=== PATIENT | male | born 1975 | race Caucasian/White ===

== ENCOUNTER 2025-06-22 07:58 | Emergency (ER) | payer OTHER, SELFPAY ==
--- OUTSIDE RECORDS SUMMARY | 2025-06-22 08:00 | XMS_ITS | Clinical Summary ---
Author Organization [facility] Address [address] [place] [id number] Care Team Providers Care Therapeutic Dietitian Name Role Phone Pcp, No Primary Care Provider Unavailabl e Allergies No known active allergies Medications sertraline (ZOLOFT) 25 mg tabletIndicatio ns:Chronic insomnia Take 1(25mg) pill orally in the evening. If, after 2 weeks no benefit may increase to 2 pills (50mg) 60 Tablet 1 09/20/2021 Active sertraline (ZOLOFT) 100 mg tabletIndicatio ns:Chronic insomnia Take 1 Tablet (100 mg) by mouth once daily. 30 Tablet 3 10/21/2021 Active Active Problems No known active problems Immunizations Immunization Administration Dates Next Due Tdap 09/30/2020 Family History Medical History Relation Name Comments Cancer Brother Cancer Father Skin Cancer Maternal Grandfather Relation Name Status Comments Brother Father Maternal Grandfather Social History Tobacco Use Types Packs/Day Years Used Date Smoking Tobacco: Former Cigarettes 0.5 25 0 05/03/1996 - 05/03/2021 Smokeless Tobacco: Current Chew Tobacco Cessation:Ready to Q uit: No; Counseling Given: Yes Alcohol Use Standard Drinks/Week Comments Yes 0 (1 standard drink = 0.6 oz pur e alcohol) 4-5 beers per day PHQ-2 Answer Date Recorded PHQ-2 TOTAL SCORE 0 04/30/2021 Social Connections Answer Date Recorded Frequency of Communication with Friends and Fami ly Not on file 11/21/2021 Financial Resource Strain Answer Date R ecorded Difficulty of Paying Living Expenses Not on file 11/21/2021 Difficulty of Paying Living Expenses Not on file 11/21/2021 Sex and Gender Information Value Date Recorded Sex Assigned at Not on file Legal Sex Male 5:47 AM [employer] Gender Identity Not on file Sexual Orientation Not on file 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 file Not on file Not on file Obstetrics History Last Filed Vital Signs Vital Sign Reading Time Taken Comments Blood Pressure 132/79 10/01/2021 9:27 AM [facility] Pulse 79 10/01/2021 9:27 AM [employer] Temperature 36.8 C (98.2 F) 04/30/2021 7:27 AM CDT Respiratory Rate 20 02/07/2012 9:05 AM CDT Oxygen Saturation 97% 10/01/2021 9:27 AM [employer] Inhaled Oxygen Concentration - - Weight 95.5 kg (210 lb 8 oz) 10/01/2021 9:27 AM [employer] Height 165.1 cm (5' 5) 06/02/2021 8:55 AM CDT Body Mass Index 35.03 06/02/2021 8:55 AM CDT Plan of Treatment Health Maintenance Due Date Last Done Comments HIV for age 15-65 1990 Hepatitis C screening for ag e 18-79 1993 Hepatitis B series for 19+ ( 1 of 3 - 19+ 3-dose series) 1994 Colonoscopy through age 75 2020 Depression screening for age 12+ 05/01/2022 05/01/2021, 04/30/2021, 05/21/2019 BMI (ht and wt on same day) for age 18+ 06/02/2022 06/02/2021, 04/30/2021, 05/21/2019, Additional history exists COVID-19 vaccine series (1 - 2023- season) 2024 Pneumococcal series for age 50+ (1 of 1 - PCV) 2025 Zoster (shingles) series for age 50+ (1 of 2) 2025 Influenza Vaccine (#1) 2025 Lipids for age 45-75 04/30/2026 04/30/2021 Tetanus booster 09/30/2030 09/30/2020 Procedures Procedure Name Priority Date/Time Associated Diagnosis Comments LIPID PANEL W REFLEX MEASURED LDL Routine 04/30/2021 8:30 AM CDT Chronic diarrhea from Last 3 Months or Most Recently Relevant to Health Maintenance Results * LIPID PANEL W REFLEX MEASURED LDL (04/30/2021 8:30 AM CDT) CHOLESTEROL,TOTAL 170 100 - 199 mg/dL 04/30/2021 4:49 PM CDT [facility] TRIGLYCERIDES 46 <150 mg/dL 04/30/2021 4:49 PM CDT [facility] HDL CHOLESTEROL 68 >40 mg/dL 4:49 PM CDT [facility] NON-HDL CHOLESTEROL 102 <145 mg/dl 04/30/2021 4:49 PM CDT [facility] CHOL/HDL RATIO 2.50 <4.50 04/30/2021 4:49 PM CDT [facility] LDL CHOLESTEROL 93 <=130 mg/dL 04/30/2021 4:49 PM CDT [facility] VLDL CHOLESTEROL 9 mg/dL 04/30/20 4:49 PM CDT [facility] PROVIDER ORDERED STATUS RANDOM 04/30/2021 4:49 PM CDT [facility] Blood BLOOD SPECIMEN / Unknown Venipuncture / Unknown 04/30/2021 8:30 AM CDT 04/30/2021 8:30 AM CDT us Arsen Rice MD CHEMISTRY Final Re sult [facility] [address] [place] [address], [place] from Last 3 Months or Most Recently Relevant to Health Maintenance Care Teams Therapeutic Dietitian Relationship Specialty Start Date End Date Pcp, No . PCP - General 12/26/22
[2025-06-22 08:01] VITALS: BP 165/100; PULSE 74; RESP 18; TEMP 36.2; O2SAT 97; BMI 35.4
--- NOTE | 2025-06-22 08:39 | CRLHL7_ITS ---
For Patients: As a result of the Cures Act, medical imaging exams and procedure reports are released immediately into your electronic medical record. You may view this report before your referring provider. If you have questions, please contact your health care provider. INDICATION: Knee pain walking up stairs and squatting down COMPARISON: None. TECHNIQUE: Three views left knee. FINDINGS: No acute or healing fracture. Normal joint alignment. Small patellofemoral osteophytes without subchondral remodeling. No focal bone lesions. Normal bone mineralization. Moderate knee joint effusion. No foreign body. IMPRESSION: Moderate left knee joint effusion. Mild patellofemoral compartment osteoarthritis. Dictated by Bouchra Summers MD @ 06/22/2025 9:13:47 AM (Electronically Signed)
--- NOTE | 2025-06-22 09:17 | ED_ITS ---
HPI - Extremity Injury (Lower) General Date Seen: 06/22/25 Chief Complaint: Extremity Pain/Injury, Lower Stated Complaint: L knee Time Seen by Provider: 06/22/25 08:04 Source: patient Mode of arrival: ambulatory Limitations: no limitations History of Present Illness HPI Narrative: Patient is a 50-year-old male presenting for left knee pain. Patient states for the past week he is having pain to his left knee. When he walks around he has minimal pain but when he goes up and down stairs for has to crawl down on his hands and knees he has quite a bit of pain. 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 Denies ever having pain within his knee before. No injuries to the knee that he is aware of. Pain seems to be to the medial and lateral joint lines. Does state meets going up steps she feels some instability. Denies any numbness but the knee does feel weak he states. No other concerns with the knee noted. Also is concerned about a wound on his right lower leg. States been there for a few weeks. Does state he has known varicose veins. States the area around the the wound was more red a few days ago but now is more pinkish color. Has no pain in the area. Does not remember injuring the area. Just states he was with some friends when somebody pointed out to him. Has not noticed any changes in the size. No other concerns noted with the wound Related Data Home Medications ?Medication ?Instructions ?Recorded ?Confirmed No Known Home Medications 06/22/25 0801/15 Allergies Allergy/AdvReac Type Severity Reaction Status Date / Time No Known Drug Allergies Allergy Verified 06/22/25 08:08 Review of Systems Narrative: Pertinent systems reviewed and were negative unless stated in HPI Exam Narrative: Exam Narrative: Const: Well-nourished, Well-developed, in mild distress Eyes: PERRL, no conjunctival injection, and symmetrical lids HENT: Atraumatic external nose and ears. Moist mucous membranes. MSK:Extremities w/o deformity, Normal Active ROM, mild tenderness to the bilateral joint lines of the left knee. Some mild swelling noted to the knee Skin: Warm, Dry. 1 cm venous stasis ulcer and right anterior lower leg just above the ankle Neuro: Normal Muscle tone, No focal neurological deficits. Psych: Awake, Alert, & Oriented x3. Appropriate mood and affect. Const: Vital Signs, click to edit/add: Vital Signs - 24 hr 06/22/25 08:01 Temperature 97.2 F L Pulse Rate [Pulse Oximeter] 74 Respiratory Rate 18 Blood Pressure [Ri ght Upper Arm] 165/100 H Pulse Oximetry 97 Oxygen Delivery Me thod Room Air Course Vital Signs Vital signs: Initial Vital Signs Temperature 97.2 F L 06/22/25 08:01 Temperature Source Temporal Artery Scan 06/22/25 08:01 Pulse Rate 74 06/22/25 08:01 Respiratory Rate 18 06/22/25 08:01 Blood Pressure 165/100 H 06/22/25 08:01 Blood Pressure Mean 121 H 06/22/25 08:01 Blood Pressure Position Sitting 06/22/25 08:01 Pulse Oximetry 97 06/22/25 08:01 Oxygen Delivery Method Room Air 06/22/25 08:01 Vital Signs Temperature 97.2 F L 06/22/25 08:01 Pulse Rate 74 06/22/25 08:01 Respiratory Rate 18 06/22/25 08:01 Blood Pressure 165/100 H 06/22/25 08:01 Pulse Oximetry 97 06/22/25 08:01 Oxygen Delivery Method Room Air 06/22/25 08:01 Temperature 97.2 F L 06/22/25 08:01 Pulse Rate 74 06/22/25 08:01 Respiratory Rate 18 06/22/25 08:01 Blood Pressure 165/100 H 06/22/25 08:01 Pulse Oximetry 97 06/22/25 08:01 Oxygen Delivery Method Room Air 06/22/25 08:01 MDM - Extremity Injury (Lower) MDM Narrative Medical decision making narrative: Patient is presenting to the emergency department for left knee pain. With his work history did consider this could be a prepatellar bursitis but is not having much pain or swelling above the knee. Pain is more within the knee into the joint lines. Will do an x-ray to look for any abnormalities. X-ray returned showing a moderate joint effusion. I spoke to him about doing an arthrocentesis. Explained that only a moderate amount and he may not get very much out of his knee and that orthopedics may not even aspirated this in the clinic due to the size. He states he would like to try the arthrocentesis. I explained to him the risks and benefits. He states he understands. Did do an arthrocentesis which strict drained about 10 mL of fluid. Is unable to get any to her drainage. For his venous stasis ulcer he will follow-up with his primary care provider. Do not believe there is any signs of infection at this time. He is doing well will be discharged. Imaging Data Left knee x-ray: Attestation: I have reviewed the pertinent imaging results. Radiologist's impression: Moderate left knee joint effusion. Mild patellofemoral compartment osteoarthritis. Dictated by Bouchra Summers MD @ 06/22/2025 9:13:47 AM Discharge Plan Discharge Clinical Impression: Effusion of knee joint, left Venous stasis ulcer Qualifiers: Venous stasis ulcer site: other part of lower leg Varicose vein presence: with varicose veins Laterality: right Non-pressure ulcer stage: limited to breakdown of skin Qualified Code(s): I83.018 - Varicose veins of right lower extremity with ulcer other part of lower leg Patient Disposition: Home, Self-Care Condition: Stable Instructions: Swollen Knee Joint (ED), Venous Insufficiency (DC) Additional Instructions: Ice your knee 3 times daily for 20 minutes and use anti-inflammatory medication. If he continued to have pain Follow-up with [facility]. Call them at . For the ulcer on your right lower leg a recommend close follow-up with your primary care provider. This appears to be a venous stasis ulcer. Prescriptions: No Action No Known Home Medications Follow Up/Referrals: Provider,Not a Local [Primary Care Provider, Family Practice] Stand Alone Forms: MyHealth Info Instructions Procedures Joint Aspiration/Injection Joint Asp./Inject. 1: Joint Aspirated: knee Preparation: chlorhexidine and sterile prep and drape Local Anesthetic: lidocaine 1% Amount of anesthesia used (mL): 5 Needle Size Used: 18G Fluid Obtained: clear Total fluid obtained (mL): 10
== END 2025-06-22 09:49 | disposition home or self-care (01) ==
PROVIDERS: Emergency Provider Student in an Organized Health Care Education/Training Program
DX: M25.462 Effusion, left knee (principal); I87.8 Other specified disorders of veins
CPT/HCPCS: 20610; 73562; 99283; 99284